=== PATIENT | male | born 1965 | race African-American/Black ===

== ENCOUNTER 2018-11-05 19:28 | Emergency (ER) | payer BC, OTHER ==
[~2018-11-05] VITALS: Ht 185.4 cm; Wt 109.0 kg
[2018-11-05 20:49] LABS: CLARITY URINE CLOUDY (CLEAR); COLOR URINE ORANGE (YELLOW); KETONES URINE TRACE (NEGATIVE); LEUKOCYTE ESTERASE URINE 1+ (NEGATIVE); NITRITE URINE NEGATIVE (NEGATIVE); OCCULT BLOOD URINE 3+ (NEGATIVE); PH URINE 5.5 (4.5-8.0); PROTEIN URINE TRACE (NEGATIVE); SPECIFIC GRAVITY URINE 1.027 (1.005-1.030)
[2018-11-06] MEDS ORDERED: ACETAMINOPHEN 325MG TABLET PO ONE
[2018-11-06 03:17] VITALS: BP 133/88
== END 2018-11-06 03:22 | disposition home or self-care (01) ==
LOC: ER 23:44
DX: S02.5XXA Fracture of tooth (traumatic), initial encounter for closed fracture (principal); K04.7 Periapical abscess without sinus; N39.0 Urinary tract infection, site not specified; R31.9 Hematuria, unspecified; F17.200 Nicotine dependence, unspecified, uncomplicated; F12.10 Cannabis abuse, uncomplicated; Z90.49 Acquired absence of other specified parts of digestive tract; X58.XXXA Exposure to other specified factors, initial encounter; Y93.89 Activity, other specified; Y92.89 Other specified places as the place of occurrence of the external cause; Y99.8 Other external cause status
CPT/HCPCS: 70486; 74176; 99284